=== PATIENT | female | born 1985 | race African-American/Black ===

== ENCOUNTER 2017-06-06 12:00 | Emergency (ER) | payer MEDICAID ==
[~2017-06-06] VITALS: Ht 154.9 cm; Wt 56.7 kg
[~2017-06-06 12:00] MED LIST: CIPRO500 MG PO; MACROBID100 MG ORAL; PHENAZOPYRIDIN200 MG ORAL
--- NOTE | 2017-06-06 12:29 | Emergency Room Report ---
History of Present Illness General Chief Complaint: Lower Extremity Injury Source: Patient Present Illness HPI The patient is a 31-year-old female presenting with right knee pain. She states that she tripped and fell onto the knee 2 days prior. Pain is a 5/10 dull ache and does not radiate. Worse with movement. She denies previous injury to the knee. She has been applying True bandage and has used Tylenol which does help. She denies other symptoms including rash, fever, numbness or tingling. Allergies: Coded Allergies: ACETAMINOPHEN (Unverified Allergy, Unknown, 08/23/14) OXYCODONE (Unverified Allergy, Unknown, 08/23/14) Patient History Past Medical History: see triage record Pertinent Family History: none Last Menstrual Period: 06/01/17 Now: No Reviewed Nursing Documentation: PMH: Agreed, PSxH: Agreed Nursing Documentation-PMH Past Medical History: No Stated History Review of Systems All Other Systems: negative except mentioned in HPI Physical Exam Vital Signs Date Time Temp Pulse Resp B/P Pulse Ox O2 Delivery O2 Flow Rate FiO2 06/06/17 12:17 98.1 83 16 106/69 98 Room Air Sp02 EP Interpretation: reviewed, normal General Appearance: no apparent distress, alert, GCS 15, non-toxic Head: normocephalic, atraumatic Eyes: bilateral eye PERRL, bilateral eye normal inspection ENT: hearing grossly normal, normal pharynx, no angioedema, normal voice Musculoskeletal: back normal, normal range of motion, swelling - R anterior knee, other - antalgic gait, tender - R knee over patella Neurologic: alert, oriented x3, responsive, motor strength/tone normal, sensory intact, speech normal Psychiatric: judgement/insight normal, memory normal, mood/affect normal, no suicidal/homicidal ideation Skin: normal color, no rash, warm/dry, well hydrated Lymphatic: no adenopathy Procedures Splinting Splinting : Consent: Verbal Location: R knee Pre-Made Type: knee immobilizer Pre-Proc Neuro Vasc Exam: normal Post-Proc Neuro Vasc Exam: normal Patient Tolerated: Well Complications: None Medical Decision Making PA Attestation Dr. Knutson is my supervising physician. Patient management was discussed with my supervising physician Diagnostic Impression: Primary Impression: Fracture, patella Qualified Codes: S82.001A - Unspecified fracture of right patella, initial encounter for closed fracture ER Course The patient is a 31-year-old female presenting for right knee pain Ddx considered include but not limited to sprain/strain, fracture, contusion PE: R knee has anterior swelling. TTP over the patella. Antalgic gait. Xray shows patella fracture Knee immobilizer placed. Crutches provided. She is RI'ed home and will be following up with PMD and orthopedics. Other X-Ray Diagnostic Results Other X-Ray Diagnostic Results : X-Ray ordered: R knee # of Views/Limited Vs Complete: 3 View Indication: Pain EP Interpretation: Yes Interpretation: no dislocation, no soft tissue swelling, other - fracture of inferior patella Impression: Other - patellar fracture Interpreting ER Provider: Myself PA Scribe Text My interpretation of the R knee xrays are there are is a fracture of inferior patella Last Vital Signs Date Time Temp Pulse Resp B/P Pulse Ox O2 Delivery O2 Flow Rate FiO2 06/06/17 12:17 98.1 83 16 106/69 98 Room Air Status: improved Disposition: HOME, SELF-CARE Condition: Improved Scripts Ibuprofen* (MOTRIN*) 600 Mg Tablet 600 MG ORAL Q8H Y for For Pain, #30 TAB 0 Refills Prov: SANTOS JAIN 06/06/17 SANTOS JAIN Jun 06, 2017 12:29
[2017-06-06] MEDS ORDERED: IBUPROFEN600 MG ORAL (13:43)
[2017-06-06 14:05] VITALS: BP 114/71
--- NOTE | 2017-06-06 14:56 | Diagnostic Imaging Report ---
Indication: Pain 3 views of the right knee were obtained. Findings: No acute fracture, malalignment, or joint effusion are identified. Joint space is relatively well-maintained. Bone mineralization is within normal limits for age. Impression: Negative exam
== END 2017-06-06 14:05 | disposition home or self-care (01) ==
LOC: EMR 12:54
DX: S82.001A Unspecified fracture of right patella, initial encounter for closed fracture (principal); W01.0XXA Fall on same level from slipping, tripping and stumbling without subsequent striking against object, initial encounter; Y92.9 Unspecified place or not applicable; Z88.6 Allergy status to analgesic agent
CPT/HCPCS: 29530; 99283